=== PATIENT | female | born 1955 | race Two or more races ===

== ENCOUNTER 2021-04-04 19:02 | Inpatient (IN) | payer MEDICAID, OTHER ==
[~2021-04-04] VITALS: Ht 165.1 cm; Wt 103.5 kg
[2021-04-04 19:55] LABS: Basophils # (auto) 0.1 10 ^3/uL (0-0.2); Basophils % (auto) 0.6 % (0.0-2.0); Eosinophils # (auto) 0.1 10 ^3/uL (0-0.8); Eosinophils % (auto) 0.5 % (0.0-7.0); Hematocrit 42.5 % (36.0-46.0); Hemoglobin 14.3 g/dL (12.2-16.2); Lymphocytes % (auto) 15.9 % (10.0-50.0); Mean Corpuscular Hemoglobin 29.4 pg (28.0-32.0); Mean Corpuscular Hgb Conc. 33.6 g/dL (32.0-36.0); Mean Corpuscular Volume 87.6 fL (80.0-100.0); Monocytes # (auto) 1.1 10 ^3/uL (0-1.3); Monocytes % (auto) 8.9 % (0.0-12.0); Neutrophils # (auto) 9.1 10 ^3/uL (1.6-8.6); Neutrophils % (auto) 74.1 % (37.0-80.0); Nucleated Red Blood Cells % 0.1 %; Red Blood Cells 4.86 10^6/uL (4.0-5.20); Red Cell Distribution Width 12.9 % (11.8-14.3); White Blood Cell 12.3 10^3/uL (4.4-10.8)
[2021-04-04 20:14] LABS: INR 1.05 (0.9-1.15); Partial Thromboplastin Time 30.5 sec (23.6-33.0)
[2021-04-04 20:15] LABS: Albumin 3.7 g/dL (3.4-5.0); Calcium 9.4 mg/dL (8.5-10.1); Potassium 3.8 mmol/L (3.5-5.1)
[2021-04-04 20:18] LABS: BUN/Creatinine Ratio 17.4; Bilirubin, Total 0.6 mg/dL (0.2-1.0); Total Protein 8.2 g/dL (6.4-8.2)
[2021-04-04 20:19] LABS: Urine Bacteria FEW /hpf (None Seen); Urine Blood 1+ /uL (Negative); Urine Specific Gravity 1.014 (1.001-1.035); Urine WBC 37 /hpf (0 - 5)
[2021-04-04] MEDS ORDERED: CIPROFLOXACIN 400MG/200ML 200 ML IV ONE (21:45)
[2021-04-04] MEDS ORDERED: HYDROmorphone HCL 2 MG/ML VL IV ONE (21:45)
[2021-04-05] MEDS ORDERED: HYDROmorphone HCL 2 MG/ML VL IV ONE (01:45)
[2021-04-05] MEDS ORDERED: ACETAMINOPHEN 325 MG TAB PO PRN (03:00)
[2021-04-05] MEDS ORDERED: ONDANSETRON HCL 4 MG/2 ML VIAL IV PRN (03:00)
[2021-04-05] MEDS ORDERED: TEMAZEPAM 15 MG CAP PO PRN (03:00)
[2021-04-05] MEDS ORDERED: MORPHINE SULFATE 4 MG/ML SYR/VIAL IV PRN (03:00)
[2021-04-05] MEDS ORDERED: DEXTROSE (50%) 50ML SYRG IV PRN (03:00)
[2021-04-05] MEDS: ACCU-CHEK COMFORT CURVE STRIP VI SCH ×4 (05:48→23:28)
[2021-04-05] MEDS: InsuLIN REG 1unit/0.01ml Soln (100units/ml) SC SCH ×4 (05:48→23:27)
[2021-04-05] MEDS ORDERED: GABA-339 PO (06:01)
[2021-04-05] MEDS: cefTRIAXone 1GM/50ML D5W 50 ML IV SCH (09:25)
[2021-04-05] MEDS: PANTOPRAZOLE 40 MG TAB PO SCH (09:51)
[2021-04-05] MEDS: SODIUM CHLORIDE 0.9% 1,000 ML IV SCH (11:50)
[2021-04-05] MEDS ORDERED: IBUP800T27 PO (17:29)
[2021-04-05] MEDS ORDERED: METF-370 PO (17:29)
[2021-04-05] MEDS ORDERED: OMEP20TA PO (17:29)
[2021-04-05 20:00] VITALS: BP 148/67
[2021-04-05] MEDS: HYDROcodone-ACET 5/325MG TAB PO PRN (20:50)
[2021-04-05 22:00] VITALS: BP 148/67
[2021-04-06] MEDS: SODIUM CHLORIDE 0.9% 1,000 ML IV SCH ×3 (00:45→18:30)
[2021-04-06 04:59] LABS: Basophils # (auto) 0.1 10 ^3/uL (0-0.2); Basophils % (auto) 0.9 % (0.0-2.0); Eosinophils # (auto) 0.2 10 ^3/uL (0-0.8); Hematocrit 40.7 % (36.0-46.0); Hemoglobin 13.9 g/dL (12.2-16.2); Lymphocytes # (auto) 1.8 10 ^3/uL (0.4-5.4); Lymphocytes % (auto) 19.7 % (10.0-50.0); Mean Corpuscular Hgb Conc. 34.2 g/dL (32.0-36.0); Mean Corpuscular Volume 87.5 fL (80.0-100.0); Monocytes % (auto) 10.7 % (0.0-12.0); Neutrophils # (auto) 6.2 10 ^3/uL (1.6-8.6); Neutrophils % (auto) 66.7 % (37.0-80.0); Nucleated Red Blood Cells % 0.1 %; Red Blood Cells 4.65 10^6/uL (4.0-5.20); White Blood Cell 9.4 10^3/uL (4.4-10.8)
[2021-04-06 05:00] VITALS: BP 108/60
[2021-04-06 05:34] LABS: Potassium 3.8 mmol/L (3.5-5.1)
[2021-04-06 05:39] LABS: BUN/Creatinine Ratio 25.5; Calcium 8.9 mg/dL (8.5-10.1)
[2021-04-06] MEDS: InsuLIN REG 1unit/0.01ml Soln (100units/ml) SC SCH ×4 (05:54→23:48)
[2021-04-06] MEDS: ACCU-CHEK COMFORT CURVE STRIP VI SCH ×4 (05:55→23:47)
[2021-04-06] MEDS: HYDROcodone-ACET 5/325MG TAB PO PRN ×2 (07:58→17:10)
[2021-04-06 09:00] VITALS: BP 125/73
[2021-04-06] MEDS: cefTRIAXone 1GM/50ML D5W 50 ML IV SCH (09:16)
[2021-04-06] MEDS: PANTOPRAZOLE 40 MG TAB PO SCH (09:16)
[2021-04-06 13:00] VITALS: BP 106/58
[2021-04-06 16:57] VITALS: BP 121/71
[2021-04-06 22:00] VITALS: BP 116/70
[2021-04-07] MEDS: HYDROcodone-ACET 5/325MG TAB PO PRN (00:53)
[2021-04-07] MEDS: SODIUM CHLORIDE 0.9% 1,000 ML IV SCH ×3 (03:30→15:09)
[2021-04-07 04:37] VITALS: BP 116/66
[2021-04-07] MEDS: ACCU-CHEK COMFORT CURVE STRIP VI SCH ×2 (05:56→11:54)
[2021-04-07] MEDS: InsuLIN REG 1unit/0.01ml Soln (100units/ml) SC SCH ×2 (05:56→11:53)
[2021-04-07] MEDS: cefTRIAXone 1GM/50ML D5W 50 ML IV SCH (08:09)
[2021-04-07] MEDS: PANTOPRAZOLE 40 MG TAB PO SCH (08:09)
[2021-04-07 09:00] VITALS: BP 134/88
== END 2021-04-07 14:40 | disposition home or self-care (01) | DRG 690 ==
LOC: ER 19:02 → OVERFLOW 04-05 02:53 → CENTRAL 04-05 16:14
PROVIDERS: ADMIT Nurse Practitioner; ATTEND Internal Medicine Geriatric Medicine
DX: N13.6 Pyonephrosis (principal); E11.9 Type 2 diabetes mellitus without complications; D72.829 Elevated white blood cell count, unspecified; R32 Unspecified urinary incontinence; K76.0 Fatty (change of) liver, not elsewhere classified; Z20.822 Contact with and (suspected) exposure to COVID-19; I10 Essential (primary) hypertension; K21.9 Gastro-esophageal reflux disease without esophagitis; Z90.710 Acquired absence of both cervix and uterus
CPT/HCPCS: 36415; 71045; 74018; 74176; 80048; 80053; 81001; 82962; 85025; 85610; 85730; 87040; 87086; 87426; 93005; 96365; 96367; 96375; G0378; J0696

== ENCOUNTER 2023-06-22 17:50 | Emergency (ER) | payer OTHER ==
[~2023-06-22] VITALS: Ht 165.1 cm; Wt 89.6 kg
[~2023-06-22 17:50] MED LIST: GABA-339 PO; IBUP-1456 PO; METF-370 PO; OMEP20TA PO
[2023-06-22] MEDS ORDERED: KETOROLAC TROMETH 60MG/2ML VIAL IM ONE (21:15)
[2023-06-23 05:05] VITALS: BP 131/67; PULSE 89; RESP 18; TEMP 98.2; O2SAT 97
== END 2023-06-22 22:17 | disposition home or self-care (01) ==
LOC: ER 17:50
DX: M54.41 Lumbago with sciatica, right side (principal); G89.29 Other chronic pain; E11.9 Type 2 diabetes mellitus without complications; K21.9 Gastro-esophageal reflux disease without esophagitis; Z79.1 Long term (current) use of non-steroidal anti-inflammatories (NSAID); Z79.899 Other long term (current) drug therapy
CPT/HCPCS: 93005; 93971; 96372; 99285; J1885